=== PATIENT | female | born 1970 ===

== ENCOUNTER 2017-09-20 18:20 | Observation (INO) | payer OTHER ==
[2017-09-20] MEDS ORDERED: ONDANSETRON 4 MG/2 ML VIAL IV ONE (20:07)
[2017-09-20] MEDS ORDERED: ACETAMINOPHEN 500 MG TAB PO PRN (20:09)
[2017-09-20] MEDS ORDERED: MORPHINE 2 MG/ML SYR IV PRN (20:09)
[2017-09-20] MEDS: NA CHLORIDE 0.9% 1,000 ML IV SCH (21:09)
[2017-09-20] MEDS ORDERED: METHYLPREDNISOLONE 125 MG INJ IV ONE (21:48)
[2017-09-20] MEDS ORDERED: LORazepam 2 MG/ML VIAL IV ONE (21:48)
[2017-09-20] MEDS ORDERED: LOPERAMIDE HCL 2 MG CAPSULE PO STA (21:48)
[2017-09-20 23:30] LABS: Urine Appearance CLEAR; Urine Bilirubin NEGATIVE (NEG); Urine Blood 3+ (NEG); Urine Color YELLOW; Urine Glucose 3+ (NEG); Urine Microscopic Reflex ORDER UMIC; Urine Protein 1+ (NEG); Urine Specific Gravity 1.025 (1.005-1.030); Urine Urobilinogen 0.2 mg/dL (0.2-1.0); Urine pH 5.5 (5.0-7.0)
[2017-09-20 23:51] LABS: Urine Bacteria <20 /HPF (<20); Urine Culture Reflex Order NOT NEEDED
[2017-09-21] MEDS: ONDANSETRON 4 MG/2 ML VIAL IV PRN ×3 (01:54→12:47)
[2017-09-21] MEDS ORDERED: LORazepam 2 MG/ML VIAL IV ONE (02:00)
[2017-09-21 05:19] LABS: Absolute Lymphocytes (CBC) 0.3 K/uL (0.7-4.9); Absolute Monocytes 0.1 K/uL (0.1-1.3); Absolute Neutrophil 10.3 K/uL (1.8-8.0); Basophils % 0.3 % (0-1.3); Hematocrit 45.1 % (36.0-45.0); MCH 30.4 pg (27.0-35.0); MCV 95.5 fL (80-100); MPV 8.4 fL (7.6-11.3); RBC Red Blood Cell Count 4.73 M/uL (3.86-4.86)
[2017-09-21] MEDS: NA CHLORIDE 0.9% 1,000 ML IV SCH ×2 (05:22→07:00)
[2017-09-21 05:47] LABS: Blood Morphology Comment NOT SEEN (NOT SEEN); Platelet Estimate ADEQ; Urine White Blood Cell Casts OK
[2017-09-21 06:22] LABS: Albumin 4.4 g/dL (3.4-5.0); Bilirubin Total 0.5 mg/dL (0.2-1.0); Potassium 4.9 mmol/L (3.5-5.1); Protein, Total 8.4 g/dL (6.4-8.2)
[2017-09-21] MEDS ORDERED: ZOLMITRIPTAN 5 MG PO PRN (07:07)
--- NOTE | 2017-09-21 07:13 | P.HP ---
Certification for Inpatient Patient admitted to: Observation With expected LOS: <2 Midnights Patient will require the following post-hospital care: None Practitioner: I am a practitioner with admitting privileges, knowledge of patient current condition, hospital course, and medical plan of care. Services: Services provided to patient in accordance with Admission requirements found in Title 42 Section 412.3 of the Code of Federal Regulations Patient History Date of Service: 09/20/17 Reason for admission: Intractable nausea and vomiting History of Present Illness: Patient is a 47-year-old female who presents to the emergency room at all to us with intractable nausea and vomiting along with diarrhea. Patient's symptoms have been going on for the last 24 hr. Patient has similar episode a few months prior after eating out with a friend. Those symptoms subsided after she went to the emergency room and was given anxiolytics. She has been dealing with a lot of stressors in her life. She has been going through a divorce after her children went to college. This has been very stressful to her life. When patient's symptoms restarted she went to [facility] emergency room. Because she was having a intractable nausea and vomiting and persistent diarrhea they wanted to transfer her to our facility. Patient presents with significant abdominal pain. She is also have multiple bouts of diarrhea. She states she had hematemesis as well. Will go ahead and admit her and monitor her labs closely. Will get a CT of the abdomen and pelvis. Will check the lipase level as well. GI consultation if her symptoms do not improve. Allergies No Known Allergies Allergy (Verified 09/20/17 19:51) Home Medications: Bupropion HCl [Bupropion Xl] 150 mg PO DAILY 09/20/17 Citalopram Hydrobromide [Citalopram HBr] 40 mg PO BEDTIME 09/20/17 Thyroid,Pork [[place] Thyroid] 120 mg PO DAILY 09/20/17 ZOLMitriptan [Zolmitriptan] 5 mg PO PRN PRN 09/20/17 Zaleplon 10 mg PO BEDTIME 09/20/17 Zolpidem Tartrate [Ambien*] 10 mg PO BEDTIME 09/20/17 hydrOXYzine pamoate [Hydroxyzine Pamoate] 25 mg PO PRN PRN 09/20/17 - Past Medical/Surgical History Has patient received pneumonia vaccine in the past: No Diabetic: No -: anxiety -: abdominoplasty -: sinus sx -: tonsillectomy - Family History Father Family History: Reviewed- Non-Contributory - Social History Smoking Status: Never smoker Alcohol use: Yes Place of Residence: Home Review of Systems 10-point ROS is otherwise unremarkable Physical Examination - Vital Signs Temperature: 97.0 F Blood Pressure: 162/79 Pulse: 84 Respirations: 16 Pulse Ox (%): 100 - Physical Exam General: Alert, In no apparent distress, Oriented x3 HEENT: Atraumatic, PERRLA, Mucous membr. moist/pink, EOMI, Sclerae nonicteric Neck: Supple, 2+ carotid pulse no bruit, No LAD, Without JVD or thyroid abnormality Respiratory: Clear to auscultation bilaterally, Normal air movement Cardiovascular: Regular rate/rhythm, Normal S1 S2, No murmurs Gastrointestinal: Normal bowel sounds, Soft and benign, Non-distended, Tenderness Musculoskeletal: No clubbing, No swelling, No tenderness Integumentary: No rashes Neurological: Normal gait, Normal speech, Normal strength at 5/5 x4 extr, Normal tone, Sensation intact, Cranial nerves 3-12 intact, Normal affect Lymphatics: No axilla or inguinal lymphadenopathy - Studies Laboratory Data (last 24 hrs) 09/21/17 05:47: Troponin I < 0.02 09/21/17 04:20: Sodium 135 L, Potassium 4.9, BUN 10, Creatinine 0.80, Glucose 191 H, Total Bilirubin 0.5, AST 31, ALT 37, Alkaline Phosphatase 99 09/21/17 04:20: WBC 10.8, Hgb 14.4, Hct 45.1 H, Plt Count 299 Assessment & Plan - Problems (Diagnosis) (1) Abdominal pain Current Visit: Yes Status: Acute (2) Intractable nausea and vomiting Current Visit: Yes Status: Acute (3) Diarrhea Current Visit: Yes Status: Acute (4) Depression Current Visit: Yes Status: Acute (5) Anxiety disorder Current Visit: Yes Status: Acute - Plan Plan: 1. Continue with IV hydration and PPI BID 2. CT abdomen and pelvis in the morning 3. Continue with pain control, anxiety medication, stool studies 4. NPO 5. GI consultation if symptoms do not improve 6. Serial H&H, and we will monitor LFTs and lipase along with electrolytes. 7. GI and DVT prophylaxis Discharge Plan: Home Plan to discharge in: Greater than 2 days - Advance Directives Does patient have a Living Will: No Does patient have a Durable POA for Healthcare: No - Code Status/Comfort Care Code Status Assessed: Yes Code Status: Full Code Critical Care: No Time Spent Managing PTS Care (In Minutes): 50
[2017-09-21] MEDS ORDERED: SODIUM CHLORIDE 0.9% 10ML INJ IV PRN (07:15)
[2017-09-21] MEDS: BUPROPION HCL XL 150 MG TAB PO SCH (09:00)
[2017-09-21] MEDS: PANTOPRAZOLE 40 MG INJ IVP SCH ×2 (09:18→20:44)
[2017-09-21] MEDS: PROMETHAZINE 25 MG/ML VIAL IV PRN ×2 (09:18→17:53)
[2017-09-21] MEDS: D5W 1,000 ML with NA BICARB 8.4% 50 MEQ IV SCH ×4 (09:18→20:45)
[2017-09-21 11:43] LABS: Absolute Lymphocytes (CBC) 0.6 K/uL (0.7-4.9); Absolute Monocytes 0.6 K/uL (0.1-1.3); Absolute Neutrophil 10.9 K/uL (1.8-8.0); Basophils % 0.3 % (0-1.3); Hematocrit 43.4 % (36.0-45.0); Lymphocytes % 4.9 % (15.3-44.8); MCH 30.2 pg (27.0-35.0); MCV 93.8 fL (80-100); Monocytes % 5.3 % (3.3-12.3); RBC Red Blood Cell Count 4.62 M/uL (3.86-4.86)
[2017-09-21 12:08] LABS: Blood Morphology Comment NOT SEEN (NOT SEEN); Platelet Estimate ADEQ; Urine White Blood Cell Casts OK
[2017-09-21 12:26] LABS: Magnesium 2.1 mg/dL (1.8-2.4); Phosphorus 1.3 mg/dL (2.5-4.9); Potassium 4.1 mmol/L (3.5-5.1); Thyroid Stimulating Hormone 0.66 uIU/mL (0.36-3.74)
[2017-09-21] MEDS: clonazePAM 0.5 MG TAB PO SCH ×3 (12:47→20:45)
--- NOTE | 2017-09-21 12:48 | RAD REPORT ---
EXAM DESCRIPTION: CTAbdomen Pelvis W Contrast - 09/21/2017 12:36 pm CLINICAL HISTORY: Abdominal pain. abd pain/Nausea and vomiting COMPARISON: No comparisons TECHNIQUE: Biphasic CT imaging of the abdomen and pelvis was performed with 100 ml non-ionic IV cont rast. All CT scans are performed using dose optimization technique as appropriate and may include automated exposure control or mA/KV adjustment according to patient size. FINDINGS: The lung bases are clear. The liver, spleen, pancreas, adrenal glands and kidneys are within normal limits. Calcifications of t he gallbladder wall seen. No bowel obstruction, free air, free fluid or abscess. Small fat containing ventral hernia. The appen billie is normal. No evidence of significant lymphadenopathy. No suspicious bony findings. IMPRESSION: No acute intra-abdominal or pelvic finding. Porcelain gallbladder is possible. Small fat containing ventral hernia.
[2017-09-21 13:29] LABS: Urine Appearance CLEAR; Urine Blood 3+ (NEG); Urine Color YELLOW; Urine Glucose 3+ (NEG); Urine Protein 2+ (NEG); Urine Specific Gravity >=1.030 (1.005-1.030); Urine Urobilinogen 0.2 mg/dL (0.2-1.0)
[2017-09-21 13:39] LABS: Urine Bilirubin NEG (NEG)
[2017-09-21 13:41] LABS: Barbiturates NEGATIVE (NEGATIVE); Benzodiazepines NEGATIVE (NEGATIVE); Cocaine NEGATIVE (NEGATIVE); METHAMPHETAM NEGATIVE (NEGATIVE); Methadone NEGATIVE (NEGATIVE); Opiates NEGATIVE (NEGATIVE); Phencyclidine NEGATIVE (NEGATIVE); THC Cannibis NEGATIVE (NEGATIVE)
[2017-09-21 13:49] LABS: Urine Amorphous Sediment 1+ /HPF (NONE SEEN); Urine Bacteria <20 /HPF (<20); Urine Culture Reflex Order REFLEXED; Urine Mucus 1+ /HPF (NONE SEEN)
--- NOTE | 2017-09-21 17:22 | PN ---
Date of Progress Note: 09/21/2017 Subjective: The patient seen and examined. Chart reviewed and case discussed with RN. The patient is still having some significant amount of nausea and vomiting. Did report some dark emesis. No blo od in the stool. Had no abdominal pain. Review of Systems: Negative except as above. Medications: Reviewed. Physical Examination: Vital Signs: Temperature 98, heart rate 85, blood pressure 197/97, respirations 18, O2 100% on nasal cannula. General: Awake, alert, oriented x3. Some mild distress. Obese, BMI 35. CV: S1, S2. No murmurs. Regular rate and rhythm. Peripheral pulses present. Respiratory: Clear to auscultation bilaterally. No wheezing. Gastrointestinal: Abdomen is soft, nontender, nondistended. Obese. No guarding or rigidity. Bowel sounds are positive. Extremities: No clubbing, cyanosis, or edema. No calf tenderness. Neurologic: Nonfocal. Laboratory Data: Sodium 136, potassium 4.1, chloride 109, CO2 of 14, BUN 10, creatinine 0.9, glucose 199, calcium 9.1, phosphorus 1.3. WBC 12.2, H and H are 14 and 43.4, platelets 392, neutrophils 89% . TSH 0.66. Lipase 114. Vitamin B12 of 752, folate 7. UDS pending. CT scan of the abdomen and pe lvis shows no acute intraabdominal or pelvic finding. Porcelain gallbladder is possible, small fat c ontaining ventral hernia. Assessment: A 47-year-old female with: 1.Acute generalized abdominal pain. The patient states that she no longer has any abdominal pain. 2.Intractable nausea and vomiting, non cyclical. We will continue with Zofran. We will add Phenerg an likely secondary to viral gastroenteritis. 3.Diarrhea. Clostridium difficile has come back negative, likely secondary to viral or bacterial ga stroenteritis. We will check stool culture. 4.Generalized anxiety disorder. We will continue with anxiolytics. 5.Major depressive disorder. We will continue SSRI. 6.Obesity, BMI 35.1. 7.Insomnia. Continue with sleep aids. 8.Gastrointestinal and deep venous thrombosis prophylaxis with proton-pump inhibitor and Lovenox. Plan: 1.We will check gastric occult for possible occult blood. Continue IV hydration and PPI. 2.Metabolic acidosis. We will continue IV fluids with bicarb secondary to intractable nausea and vo miting, likely discharge in a.m. if continues to improve. Advanced diet as tolerated. SA/MODL Voice ID: [id number] Report ID: [id number]
[2017-09-21] MEDS: CITALOPRAM 10 MG TABLET PO SCH (20:45)
[2017-09-21] MEDS ORDERED: HOME MED 1 EA UNK (Zaleplon [Zaleplon] 10 MG) PO SCH (21:00)
[2017-09-22] MEDS: ONDANSETRON 4 MG/2 ML VIAL IV PRN ×4 (04:49→18:29)
[2017-09-22 05:26] LABS: Absolute Lymphocytes (CBC) 1.6 K/uL (0.7-4.9); Absolute Monocytes 1.5 K/uL (0.1-1.3); Absolute Neutrophil 14.9 K/uL (1.8-8.0); Basophils % 0.2 % (0-1.3); Lymphocytes % 8.9 % (15.3-44.8); MCH 30.6 pg (27.0-35.0); MCV 91.7 fL (80-100); MPV 8.1 fL (7.6-11.3); Monocytes % 8.4 % (3.3-12.3); RBC Red Blood Cell Count 4.58 M/uL (3.86-4.86)
[2017-09-22] MEDS: clonazePAM 0.5 MG TAB PO SCH ×4 (05:44→21:17)
[2017-09-22 05:49] LABS: Albumin 4.3 g/dL (3.4-5.0); Bilirubin Total 0.9 mg/dL (0.2-1.0); Potassium 3.1 mmol/L (3.5-5.1); Protein, Total 8.1 g/dL (6.4-8.2)
[2017-09-22] MEDS ORDERED: D5W 1,000 ML with NA BICARB 8.4% 50 MEQ IV SCH ×2 (08:00)
[2017-09-22] MEDS: BUPROPION HCL XL 150 MG TAB PO SCH (08:57)
[2017-09-22] MEDS: PANTOPRAZOLE 40 MG INJ IVP SCH ×2 (08:57→21:38)
[2017-09-22] MEDS ORDERED: POTASSIUM 25 MEQ EFFERV TAB PO ONE ×2 (09:00→12:00)
--- NOTE | 2017-09-22 12:11 | RAD REPORT ---
EXAM DESCRIPTION: US - Abdomen Exam Complete - 09/22/2017 11:28 am CLINICAL HISTORY: Abdominal pain, nausea and vomiting COMPARISON: CT imaging September 21 FINDINGS: Gallbladder size is normal. Multiple large gallstones are present with dense posterior aco ustic shadowing. Curvilinear echogenic wall of the gallbladder is seen along with a second curvilinea r echogenic line within the lumen. The curvilinear calcifications seen on the CT study is believed to be related to gallstones rather than gallbladder wall calcification. True gallbladder wall thickenin g or edema not suspected. Common bile duct is normal with no common duct stone identified. The liver and spleen show no suspicious focal findings. Liver size is upper normal. No splenomegaly. The pancreas is partially obscured. No abnormality seen on the prior day CT study. No hydronephrosis or suspicious mass in either kidney. Cortical thickness and echogenicity are normal range. Aorta and IVC show no suspicious findings. No ascites or bulky lymphadenopathy. IMPRESSION: Multiple large calcified gallstones are present. The curvilinear gallbladder calcificati ons seen on the CT study are believed to be calcifications related to the gallstones within the lumen rather than calcifications of the gallbladder wall. No biliary tree dilatation or common duct stone seen. No gallbladder wall thickening or edema. Pancreas is too obscured for assessment; however, no acute finding seen on the CT study.
[2017-09-22 12:30] LABS: Absolute Lymphocytes (CBC) 1.1 K/uL (0.7-4.9); Absolute Monocytes 0.9 K/uL (0.1-1.3); Absolute Neutrophil 12.4 K/uL (1.8-8.0); Basophils % 0.2 % (0-1.3); Eosinophils % 0.8 % (0-4.4); Hematocrit 40.8 % (36.0-45.0); Lymphocytes % 7.8 % (15.3-44.8); MCH 31.3 pg (27.0-35.0); MCV 91.1 fL (80-100); MPV 7.9 fL (7.6-11.3); Monocytes % 6.1 % (3.3-12.3); RBC Red Blood Cell Count 4.48 M/uL (3.86-4.86)
[2017-09-22] MEDS ORDERED: POTASSIUM CL 40 MEQ in NA CHLORIDE 0.9% 500 ML IV SCH (13:30)
--- NOTE | 2017-09-22 14:01 | P.PN ---
Subjective Date of Service: 09/22/17 Primary Care Provider: Dr. Dong([place], [place]) Chief Complaint: Intractable nausea and vomiting Subjective: Other (Patient with nausea. No abdominal pain noted. No diarrhea noted.) Physical Examination - Vital Signs Temperature: 98.9 F Blood Pressure: 154/86 Pulse: 90 Respirations: 20 Pulse Ox (%): 100 - Physical Exam General: Alert, In no apparent distress, Oriented x3, Cooperative HEENT: Atraumatic Neck: Supple Respiratory: Clear to auscultation bilaterally, Normal air movement Cardiovascular: Normal pulses, Regular rate/rhythm Gastrointestinal: Normal bowel sounds, Soft and benign, Non-distended, No tenderness, No masses, No rebound, No guarding Musculoskeletal: No erythema, No tenderness, No warmth Integumentary: No tenderness/swelling, No erythema, No warmth, No cyanosis Neurological: Normal speech, Normal strength at 5/5 x4 extr, Normal tone, Abnormal affect (Poor eye contact.) - Studies Laboratory Data (last 24 hrs) 09/22/17 15:00: Potassium Cancelled 09/22/17 12:18: WBC 14.5 H D, Hgb 14.0, Hct 40.8, Plt Count 371 09/22/17 12:18: Sodium 136, Potassium 3.0 L, BUN 14, Creatinine 1.00, Glucose 156 H 09/22/17 04:26: Sodium 137, Potassium 3.1 L, BUN 12, Creatinine 1.00, Glucose 159 H, Total Bilirubin 0.9, AST 37, ALT 42, Alkaline Phosphatase 96 09/22/17 04:26: WBC 18.0 H D, Hgb 14.0, Hct 42.0, Plt Count 408 H 09/22/17 04:26: Troponin I < 0.02 Microbiology Data (last 24 hrs): 09/21/17 19:35 Gastric Aspirate Gastric Occult Blood - Final 09/21/17 Unknown Stool Fecal Leukocyte Stain - Final 09/21/17 10:31 Stool Clostridium difficile Toxin Assay - Final Medications List Reviewed: Yes Assessment & Plan - Problems (Diagnosis) (1) Depression with anxiety Current Visit: Yes Status: Chronic Plan: Continue with medication. Will limit benzodiazepine. Encourage ambulation. (2) Insomnia Current Visit: Yes Status: Chronic Plan: Medications reviewed. Patient taking sonata and Ambien at home. Patient may be taking too much medication. These are to hypnotics. Would recommend to discontinue one of them. Recommendation for the patient to follow up with sleep legal financial specialist. Both in combination may cause increased nausea and vomiting. This was addressed in detail. Medical records from pharmacies indicate patient gets 90 pills total of Ambien and sonata. Qualifiers: Insomnia type: unspecified Qualified Code(s): G47.00 - Insomnia, unspecified (3) Cholelithiasis Current Visit: Yes Status: Chronic Plan: Gallstones noted. No cholecystitis noted. Will have surgery evaluate the patient. Qualifiers: Cholelithiasis location: gallbladder Cholecystitis presence: without cholecystitis Biliary obstruction: without biliary obstruction Qualified Code(s): K80.20 - Calculus of gallbladder without cholecystitis without obstruction (4) Obesity Current Visit: Yes Status: Chronic Plan: Address lifestyle modification education. Qualifiers: Obesity type: due to excess calories Obesity classification: adult class 2 (BMI 35 - 39.9) Serious obesity comorbidity presence: with serious comorbidity Body mass index: BMI 35.0-35.9 Qualified Code(s): E66.01 - Morbid (severe) obesity due to excess calories; Z68.35 - Body mass index (BMI) 35.0-35.9, adult (5) Hypokalemia Current Visit: Yes Status: Acute Plan: Continue replacement. Will monitor and adjust appropriately. Replacement protocol in place. (6) Diarrhea Onset Date: 09/21/17 Current Visit: Yes Status: Acute Plan: C diff negative. No reports of diarrhea at this time. Qualifiers: Diarrhea type: unspecified type Qualified Code(s): R19.7 - Diarrhea, unspecified (7) Intractable nausea and vomiting Onset Date: 09/21/17 Current Visit: Yes Status: Acute Plan: Suspect gastroenteritis verses induced. Will monitor this closely. Will measure output. Encourage ambulation. With advanced as tolerated. Await surgery evaluation. Qualifiers: Vomiting type: unspecified Qualified Code(s): R11.2 - Nausea with vomiting , unspecified Discharge Plan: Home Plan to discharge in: 24 Hours Time Spent Managing Pts Care (In Minutes): 55
[2017-09-22] MEDS: NA CHLORIDE 0.9% 1,000 ML IV SCH (17:18)
--- NOTE | 2017-09-22 20:23 | CON ---
Date of Consultation: 09/22/2017 History Of Present Illness: The patient is a 47-year-old female, who presents the emergenc y room on 09/20/2017 with intractable nausea and vomiting along with diarrhea. The patient said that she had been having symptoms 24 hours prior to her admission. She had similar episodes several ashley hs ago prior after eating out with a friend. The symptoms subsided and she went to emergency room, w as given nausea medication. She had been dealing with a lot of stressors in her life. She has been going through a divorce and her children went to college. She would also emergency room at which poi nt they ultimately could not treat her nausea and vomiting by her report and they transferred her her e for more definitive care. She states that after multiple episodes of vomiting which was bilious an d yellow in consistency, she started to have some streaks of blood with dry heaving. She additionall y noted that her diarrhea was essentially yellow and watery initially, but her diarrhea subsided. Sh kenia continues to have persistent nausea, but has not had a vomiting episode in the last 24 hours. She states however that her nausea is quite intractable at this time. Past Medical History: Significant for anxiety. Past Surgical History: Include abdominoplasty, sinus surgery, tonsillectomy. Home Medications: Include bupropion, citalopram, [place] Thyroid, Ambien, zaleplon, hydroxyzine, and sumatriptan. Family History: Noncontributory. Social History: She denies smoking. She drinks only recreationally. She lives at home. She denies recreational drug use. Review of Systems: A 10-point review of systems other than HPI, denies. Physical Examination: Vital Signs: At the time of examination her BMI is 35. Her blood pressure was 154/86, respiratory r ate is 20, pulse was 90, temperature 98.9. General: She is awake, alert, oriented. Psychiatric: She is appropriate and conversive. HEENT: She is normocephalic. Sclerae anicteric. Mucous membranes moist. Oropharynx clear. Neck: Supple. No JVD. Chest: Normal expansion and excursion. Cardiovascular: Regular rate and rhythm. Pulmonary: Clear to auscultation bilaterally. Abdomen: Soft, nontender, nondistended. No rebound. No guarding. No focal peritonitis. She has a small fat containing umbilical hernia which is not tender. Extremities: No clubbing, cyanosis, or edema. Skin: Warm and dry. Laboratory Data: She had a laboratory exam, which reveals a white blood cell count of 14.5, hemoglob in is 14.0, hematocrit of 40.8, neutrophils 85%, her platelets were 371. Her chemistry shows a sodiu m 136, potassium 3.0, chloride 105, carbon dioxide 19, BUN 14, creatinine 1.0, glucose is 156, calciu m 9.4. Her lipase on admission was 114. She had a UA, which showed 3+ ketones, 3+ blood, 5-10 red b lood cells, 3+ glucose with 2+ protein, less than 20 bacteria. Her toxicology screen was negative. She had a CT scan performed of abdomen and pelvis, which is officially read as no acute intraabdomina l pelvic findings. Porcelain gallbladder as possible, small fat containing ventral hernia. In addit ion, she had an abdominal ultrasound of the right upper quadrant, which was officially read as multip le large calcified gallstones are present. The curvilinear gallbladder calcifications seen on CT are believed to be calcifications related to gallstones within the lumen rather than calcification of the gallbladder wall. No biliary tree dilatation. Common duct stone seen. No gallbladder wall thicken ing or edema. Pancreas is too obscured for assessment, however, no acute findings on the CT study. Assessment And Plan: This is a 47-year-old female, who comes in with persistent nausea over several days. 1.IV fluid hydration. 2.Clear liquid diet. 3.Send stool for cultures as well as Shiga toxin as there has been a recent outbreak. 4.Continue medical management per Dr. Goff. I will follow along with you. YUMI/CAILIN Voice ID: [id number] Report ID: [id number]
[2017-09-22] MEDS: CITALOPRAM 10 MG TABLET PO SCH (21:16)
[2017-09-22] MEDS ORDERED: cloNIDine HCl 0.1 MG TAB PO ONE (21:58)
[2017-09-22] MEDS: ZOLPIDEM TARTRATE 5 MG TABLET PO PRN ×2 (22:56)
[2017-09-23 06:01] LABS: Absolute Lymphocytes (CBC) 2.7 K/uL (0.7-4.9); Absolute Neutrophil 5.5 K/uL (1.8-8.0); Basophils % 0.3 % (0-1.3); Eosinophils % 0.3 % (0-4.4); Hematocrit 34.7 % (36.0-45.0); Lymphocytes % 29.5 % (15.3-44.8); MCH 31.6 pg (27.0-35.0); MCV 91.7 fL (80-100); MPV 7.9 fL (7.6-11.3); Monocytes % 10.6 % (3.3-12.3); RBC Red Blood Cell Count 3.79 M/uL (3.86-4.86)
[2017-09-23 06:41] LABS: Magnesium 1.9 mg/dL (1.8-2.4)
[2017-09-23 06:43] LABS: Potassium 2.8 mmol/L (3.5-5.1)
[2017-09-23] MEDS: NA CHLORIDE 0.9% 1,000 ML IV SCH ×2 (07:42→10:00)
[2017-09-23] MEDS: KCL 20 MEQ/100 mL IVPB 20 MEQ/100 ML BAG IV SCH ×3 (08:12→12:12)
--- NOTE | 2017-09-23 09:50 | P.DS ---
Admission Date: 09/20/17 Discharge Date: 09/23/17 Primary Care Provider: Dr. Dong([place], [place]) Disposition: ROUTINE DISCHARGE Discharge Condition: GOOD Reason for Admission: Intractable nausea and vomiting Consultations: Surgery-Dr. Ramos Procedures: CT scan: COMPARISON: No comparisons TECHNIQUE: Biphasic CT imaging of the abdomen and pelvis was performed with 100 ml non-ionic IV contrast. All CT scans are performed using dose optimization technique as appropriate and may include automated exposure control or mA/KV adjustment according to patient size. FINDINGS: The lung bases are clear. The liver, spleen, pancreas, adrenal glands and kidneys are within normal limits. Calcifications of the gallbladder wall seen. No bowel obstruction, free air, free fluid or abscess. Small fat containing ventral hernia. The appendix is normal. No evidence of significant lymphadenopathy. No suspicious bony findings. IMPRESSION: No acute intra-abdominal or pelvic finding. Porcelain gallbladder is possible. Small fat containing ventral hernia. Abdominal ultrasound: Comparison: CT scan FINDINGS: Gallbladder size is normal. Multiple large gallstones are present with dense posterior acoustic shadowing. Curvilinear echogenic wall of the gallbladder is seen along with a second curvilinear echogenic line within the lumen. The curvilinear calcifications seen on the CT study is believed to be related to gallstones rather than gallbladder wall calcification. True gallbladder wall thickening or edema not suspected. Common bile duct is normal with no common duct stone identified. The liver and spleen show no suspicious focal findings. Liver size is upper normal. No splenomegaly. The pancreas is partially obscured. No abnormality seen on the prior day CT study. No hydronephrosis or suspicious mass in either kidney. Cortical thickness and echogenicity are normal range. Aorta and IVC show no suspicious findings. No ascites or bulky lymphadenopathy. IMPRESSION: Multiple large calcified gallstones are present. The curvilinear gallbladder calcifications seen on the CT study are believed to be calcifications related to the gallstones within the lumen rather than calcifications of the gallbladder wall. No biliary tree dilatation or common duct stone seen. No gallbladder wall thickening or edema - Problems (1) Depression with anxiety Current Visit: Yes Status: Chronic (2) Insomnia Current Visit: Yes Status: Chronic Qualifiers: Insomnia type: unspecified Qualified Code(s): G47.00 - Insomnia, unspecified (3) Cholelithiasis Current Visit: Yes Status: Chronic Qualifiers: Cholelithiasis location: gallbladder Cholecystitis presence: without cholecystitis Biliary obstruction: without biliary obstruction Qualified Code(s): K80.20 - Calculus of gallbladder without cholecystitis without obstruction (4) Obesity Current Visit: Yes Status: Chronic Qualifiers: Obesity type: due to excess calories Obesity classification: adult class 2 (BMI 35 - 39.9) Serious obesity comorbidity presence: with serious comorbidity Body mass index: BMI 35.0-35.9 Qualified Code(s): E66.01 - Morbid (severe) obesity due to excess calories; Z68.35 - Body mass index (BMI) 35.0-35.9, adult (5) Hypokalemia Current Visit: Yes Status: Acute (6) Diarrhea Onset Date: 09/21/17 Current Visit: Yes Status: Acute Qualifiers: Diarrhea type: unspecified type Qualified Code(s): R19.7 - Diarrhea, unspecified (7) Intractable nausea and vomiting Onset Date: 09/21/17 Current Visit: Yes Status: Acute Qualifiers: Vomiting type: unspecified Qualified Code(s): R11.2 - Nausea with vomiting , unspecified (8) Gastroenteritis Current Visit: Yes Status: Acute (9) Hypothyroidism Current Visit: Yes Status: Chronic Qualifiers: Hypothyroidism type: unspecified Qualified Code(s): E03.9 - Hypothyroidism , unspecified Brief History of Present Illness: 47-year-old female presented emergency room with nausea vomiting and diarrhea. Patient had symptoms for several days. Patient was evaluated in the emergency room. She was admitted for treatment and further evaluation. Hospital Course: During the course of her stay her condition improved. Patient likely had gastroenteritis. Patient received IV fluids. C diff culture negative. Urine culture unremarkable. CT scan showed no acute intra-abdominal or pelvic abnormality. Porcelain gallbladder was possible. Small fat containing ventral hernia noted. A follow up abdominal ultrasound showed multiple large calcified gallstones. Gallbladder calcification seen on CT scan believed to be calcifications conditions related to gallstones. No biliary tree dilation or common bile duct stone was noted. Gallbladder wall was not thickened. The patient was evaluated by surgery. No surgical intervention was needed at this time. At discharge patient was able tolerate her diet. At discharge she will continue with a GI soft diet and advance as tolerated. Patient will be provided medication for nausea as needed. Recommendation is to recheck lab-CBC and BMP in 1 week to monitor progress. Patient has depression with anxiety. She also suffers from insomnia. Medications reviewed. At discharge she will continue with Bupropion XL 150 mg daily and Celexa 40 mg daily. Patient takes 2 types of medications for insomnia. The combination of the 2 medications can cause nausea. Recommendation is to continue with only 1 medication. At discharge recommend to continue with Sonata 10 mg daily as needed for insomnia and discontinue Ambien. Recommendation is for the patient follow up with her PCP to further evaluate and address. Patient may have GERD. At discharge patient continue with Protonix 40 mg 1 pill once daily. Patient may follow up with GI as an outpatient to further evaluate. Patient was found to have cholelithiasis without cholecystitis. Patient may follow up with surgery as an outpatient to further assess. Patient has hypothyroidism. Patient will continue with [place] thyroid 120 mg daily. Electrolytes were replaced. Recommendation to recheck BMP in 1 week to monitor her progress. Vital Signs/Physical Exam: Temp Pulse Resp BP Pulse Ox 97.0 F 69 20 119/65 95 09/23/17 08:00 09/23/17 08:00 09/23/17 08:00 09/23/17 08:00 09/23/17 08:00 General: Alert, In no apparent distress, Oriented x3, Cooperative HEENT: Atraumatic Neck: Supple Respiratory: Clear to auscultation bilaterally, Normal air movement Cardiovascular: Normal pulses, Regular rate/rhythm Gastrointestinal: Normal bowel sounds, Soft and benign, Non-distended, No tenderness, No masses, No rebound, No guarding Musculoskeletal: No erythema, No tenderness, No warmth Integumentary: No tenderness/swelling, No erythema, No warmth, No cyanosis Neurological: Normal speech, Normal strength at 5/5 x4 extr, Normal tone, Normal affect Laboratory Data at Discharge: WBC 9.2 K/uL (4.3-10.9) D 09/23/17 05:33 Hgb 12.0 g/dL (12.0-15.0) 09/23/17 05:33 Hct 34.7 % (36.0-45.0) L 09/23/17 05:33 Plt Count 335 K/uL (152-406) 09/23/17 05:33 Sodium 142 mmol/L (136-145) 09/23/17 05:33 Potassium 2.8 mmol/L (3.5-5.1) L* 09/23/17 05:33 BUN 14 mg/dL (7-18) 09/23/17 05:33 Creatinine 0.80 mg/dL (0.55-1.3) 09/23/17 05:33 Glucose 97 mg/dL (74-106) 09/23/17 05:33 Phosphorus 1.3 mg/dL (2.5-4.9) L 09/21/17 11:23 Magnesium 1.9 mg/dL (1.8-2.4) 09/23/17 05:33 Total Bilirubin 0.9 mg/dL (0.2-1.0) 09/22/17 04:26 AST 37 U/L (15-37) 09/22/17 04:26 ALT 42 U/L (12-78) 09/22/17 04:26 Alkaline Phosphatase 96 U/L (45-117) 09/22/17 04:26 Troponin I < 0.02 ng/mL (0.0-0.045) 09/22/17 04:26 Lipase 114 U/L (73-393) 09/21/17 11:23 Home Medications: Bupropion HCl [Bupropion Xl] 150 mg PO DAILY 09/20/17 Citalopram Hydrobromide [Citalopram HBr] 40 mg PO BEDTIME 09/20/17 Thyroid,Pork [[place] Thyroid] 120 mg PO DAILY 09/20/17 ZOLMitriptan [Zolmitriptan] 5 mg PO PRN PRN 09/20/17 Zaleplon 10 mg PO BEDTIME 09/20/17 Pantoprazole [Protonix Tab] 40 mg PO DAILY #30 tab 09/23/17 New Medications: Pantoprazole [Protonix Tab] 40 mg PO DAILY #30 tab Patient Discharge Instructions: 1. Patient will need a follow up with a PCP in 1 week to follow up this hospitalization. 2. Patient presented with nausea, vomiting and diarrhea. Patient evaluated and received IV fluids. C diff culture negative. Urine culture unremarkable. CT scan showed no acute intra- abdominal or pelvic abnormality. Gallbladder ultrasound showed gallstones. No thickening to the gallbladder wall noted. The patient was evaluated by surgery. No surgical intervention was needed at this time. At discharge she will continue with a GI soft diet and advance as tolerated. Patient will be provided medication for nausea as needed. Recommendation is to recheck lab-CBC and BMP in 1 week to monitor progress. 3. Patient has depression with anxiety. She also suffers from insomnia. Medications reviewed. At discharge she will continue with Wellbutrin XL 150 mg daily and Celexa 40 mg daily. Patient takes 2 types of medications for insomnia. The combination of the 2 medications can cause nausea. Recommendation is to continue with only 1 medication. Recommend to continue with Sonata 10 mg at night as needed for insomnia and discontinue Ambien. Recommendation is for the patient follow up with her PCP to further evaluate and address. 4. Patient may have GERD. At discharge patient continue with Protonix 40 mg 1 pill once daily. Patient may follow up with GI as an outpatient to further evaluate. 5. Patient was found to have cholelithiasis without cholecystitis. Patient may follow up with surgery as an outpatient to further assess. 6. Patient has hypothyroidism. Patient will continue with [place] thyroid 120 mg daily. Recommendation is to recheck lab for her thyroid in 4-6 weeks to monitor progress. 7. Recommendation is to recheck lab-CBC and BMP in 1 week to monitor her progress. Diet: GI soft, advance as tolerated Activity: Ad josue Time spent managing pt's care (in minutes): 55
[2017-09-23] MEDS: clonazePAM 0.5 MG TAB PO SCH ×2 (09:55→13:38)
[2017-09-23] MEDS: PANTOPRAZOLE 40 MG INJ IVP SCH (09:55)
[2017-09-23] MEDS: BUPROPION HCL XL 150 MG TAB PO SCH (09:55)
== END 2017-09-23 15:36 | disposition home or self-care (01) ==
LOC: 2ND 18:20 → UNDOADMOB 19:19
PROVIDERS: ADMIT Family Medicine; ATTEND Family Medicine
DX: K52.9 Noninfective gastroenteritis and colitis, unspecified (principal); G47.00 Insomnia, unspecified; K80.20 Calculus of gallbladder without cholecystitis without obstruction; E66.01 Morbid (severe) obesity due to excess calories; Z68.35 Body mass index [BMI] 35.0-35.9, adult; E87.6 Hypokalemia; E03.9 Hypothyroidism, unspecified; F41.1 Generalized anxiety disorder; F32.9 Major depressive disorder, single episode, unspecified; E87.2 Acidosis
CPT/HCPCS: 36415; 74177; 76700; 80048; 80053; 80307; 81001; 81003; 81015; 82271; 82607; 82746; 83690; 83735; 83986; 84100; 84145; 84439; 84443; 84484; 85025; 87045; 87046; 87086; 87088; 87493; 89055; C9113; G0378; J2405; J2550; J2930; J7030; Q9967